=== PATIENT | female | born 1965 | race Native Hawaiian/Other Pacific Islander ===

== ENCOUNTER 2020-11-21 13:41 | Outpatient (CLI) | payer OTHER | END 2020-11-21 19:27 | disposition home or self-care (01) | LOC: RESP 13:41 | PROVIDERS: ATTEND Specialist | DX: R07.89 Other chest pain (principal); I10 Essential (primary) hypertension ==

== ENCOUNTER 2020-11-22 10:51 | Outpatient (CLI) | payer OTHER | END 2020-11-22 19:39 | disposition home or self-care (01) | LOC: RESP 10:51 | PROVIDERS: ATTEND Specialist | DX: R07.89 Other chest pain (principal); Z91.89 Other specified personal risk factors, not elsewhere classified | CPT/HCPCS: 93225 ==

== ENCOUNTER 2021-08-04 08:49 | Outpatient (CLI) | payer OTHER | END 2021-08-04 19:33 | disposition home or self-care (01) | LOC: MAMMO 08:49 | PROVIDERS: ATTEND Nurse Practitioner Family | DX: R23.4 Changes in skin texture (principal); R23.9 Unspecified skin changes; Z87.2 Personal history of diseases of the skin and subcutaneous tissue; Z09 Encounter for follow-up examination after completed treatment for conditions other than malignant neoplasm; N64.59 Other signs and symptoms in breast | CPT/HCPCS: G0279 ==

== ENCOUNTER 2022-05-15 12:19 | Outpatient (CLI) | payer OTHER | END 2022-05-15 21:37 | disposition home or self-care (01) | LOC: RAD 12:19 | PROVIDERS: ATTEND Nurse Practitioner Family | DX: M25.552 Pain in left hip (principal); M79.672 Pain in left foot; M25.512 Pain in left shoulder ==

== ENCOUNTER 2022-06-18 11:54 | Outpatient (CLI) | payer OTHER | END 2022-06-18 20:33 | disposition home or self-care (01) | LOC: RAD 11:54 | PROVIDERS: ATTEND Family Medicine | DX: M25.562 Pain in left knee (principal) ==

== ENCOUNTER 2023-06-20 10:54 | Outpatient (CLI) | payer OTHER | END 2023-06-20 19:36 | disposition home or self-care (01) | LOC: US 10:54 | PROVIDERS: ATTEND Family Medicine | DX: R79.89 Other specified abnormal findings of blood chemistry (principal); Z86.39 Personal history of other endocrine, nutritional and metabolic disease ==